=== PATIENT | female | born 1990 ===

== ENCOUNTER 2018-01-02 19:25 | Inpatient (IN) | payer OTHER ==
[2018-01-02] MEDS ORDERED: AMPICILLIN SODIUM 2 GM VIAL ONE (20:13)
[2018-01-02] MEDS ORDERED: AMPICILLIN - 2 GM in SODIUM CHLORIDE 100 ML IVPB ONE (20:15)
[2018-01-02] MEDS ORDERED: LIDOCAINE HCL 1% PRESERVATIVE FREE - 30ML VIAL ONE (20:39)
[2018-01-02] MEDS ORDERED: OXYTOCIN 20 UNITS in 0.9% NS 20 UNIT/1,000 ML INFUS.BAG IV ONE (20:39)
[2018-01-02 20:42] VITALS: BMI 46.7
[2018-01-02 20:59] LABS: BASO % 0.2 % (0-2.0); EOS % 1.2 % (0-4.5); HEMATOCRIT 42.9 % (32.4-45.2); HEMOGLOBIN 14.2 GM/dL (10.7-15.3); LYMPH % 17.6 % (8-40); MCHC 33.1 g/dl (32.0-36.0); MEAN CELL VOLUME 90.5 fl (80-96); MEAN PLT VOLUME 9.8 fl (7.5-11.1); MONO % 5.3 % (3.8-10.2); NEUT % 75.7 % (42.8-82.8); PLATELET COUNT 251 K/MM3 (134-434); RBC 4.73 M/mm3 (3.60-5.2); RDW 15.1 % (11.6-15.6); WHITE BLOOD COUNT 9.3 K/mm3 (4.0-10.0)
[2018-01-02] MEDS ORDERED: DEXTROSE 5%-LACTATED RINGERS 1,000 ML IV SCH (21:00)
--- NOTE | 2018-01-02 21:02 | HP ---
Past Medical History - Admission Chief Complaint: Labor pain History of Present Illness: 27 yo @ 39 weeks gestation, EDC 01/07/18, admitted for labor pain. She has a goiter and is scheduled for surgery after delivery. History Source: Patient Limitations to Obtaining History: No Limitations - Past Medical History ...: 2 ...Para: 1 ...Term: 1 ...: 0 ...Spon : 0 ...Induced : 0 ...Multiple Gestation: 0 ...LMP: 04/06/17 ... Weeks Gestation by Dates: 38.5 ...EDC by Dates: 01/11/18 ...EDC by Sono: 01/09/18 - Past Surgical History Past Surgical History: Yes: None Hx Myomectomy: No Hx Transabdominal Cerclage: No - Smoking History Smoking history: Former smoker Have you smoked in the past 12 months: Yes - Alcohol/Substance Use Hx Alcohol Use: No History of Substance Use: reports: None - Social History Usual Living Arrangement: Yes: With Significant Other History of Recent Travel: No Home Medications - Allergies Allergies/Adverse Reactions: Allergies Allergy/AdvReac Type Severity Reaction Status Date / Time iodine AdvReac Intermediate Itching Verified 01/02/18 20:10 shellfish derived AdvReac Intermediate Hives Verified 01/02/18 20:10 - Home Medications Home Medications: Ambulatory Orders Tablet 1 tablet PO DAILY 01/02/18 Ranitidine [Zantac -] 150 mg PO DAILY 01/02/18 Family Disease History - Family Disease History Family History: Unremarkable Review of Systems - Review of Systems Constitutional: reports: No Symptoms Eyes: reports: No Symptoms HENT: reports: No Symptoms Neck: reports: No Symptoms Cardiovascular: reports: No Symptoms Respiratory: reports: No Symptoms Gastrointestinal: reports: No Symptoms Genitourinary: reports: Pain Neurological: reports: No Symptoms Psychiatric: reports: No Symptoms Pain Intensity: 8 Physical Exam - Maternity Vital Signs: Vital Signs Temperature 98.8 F 01/02/18 19:45 Pulse Rate 79 01/02/18 19:45 Respiratory Rate 18 01/02/18 19:45 Blood Pressure 122/66 01/02/18 19:45 O2 Sat by Pulse Oximetry (%) Constitutional: Yes: Well Nourished Eyes: Yes: Conjunctiva Clear HENT: Yes: Atraumatic Neck: Yes: Supple Cardiovascular: Yes: Regular Rate and Rhythm Lungs: Clear to auscultation - Abdominal Exam/OB Number of Fetuses: Single Presentation: Vertex Contractions: Yes Regularity: Regular Intensity: Moderate - Vaginal Exam/OB Vaginal Bleediing: No Dilatation (cm): 8 Amniotic Membrane Status: Intact Station: -2 - Physical Exam Musculoskeletal: Yes: WNL Extremities: Yes: WNL Integumentary: Yes: WNL ...Motor Strength: WNL Psychiatric: Yes: Alert, Oriented Problem List - Problems (1) Pain during labor Code(s): O99.89 - OTH DISEASES AND CONDITIONS COMPL PREG/CHLDBRTH; R52 - PAIN, UNSPECIFIED Assessment/Plan Active labor Admit to L&D Analgesia as needed Anticipate
[2018-01-02 21:13] LABS: INR 0.95 (0.82-1.09); PROTHROMBIN TIME (PATIENT) 10.7 SEC (9.7-13.0)
--- NOTE | 2018-01-02 21:16 | PN ---
Progress Note (short form) - Note Progress Note: Patient seen and re-evaluated. C/O moderate discomfort AROM + Mec Problem List - Problems (1) Pain during labor Code(s): O99.89 - OTH DISEASES AND CONDITIONS COMPL PREG/CHLDBRTH; R52 - PAIN, UNSPECIFIED
--- NOTE | 2018-01-02 21:18 | PN ---
Delivery - Delivery Vaginal Delivery: Spontaneous Episiotomy/Laceration: None EBL (cc): 300 Delivery, Single - Feeding Plan Initial Plan: Exclusive throughout hospitalization Remarks - Remarks Remarks: Normal spontaneous vaginal delivery of a live boy over intact perineum. Nose / Oropharynx suctioned @ perineum. Cord clamped and cut. Placenta expelled spontaneously intact.
[2018-01-02] MEDS ORDERED: METHYLERGONOVINE MALEATE 0.2 MG/1 ML AMP IM PRN (21:19)
[2018-01-02] MEDS ORDERED: BISACODYL 10 MG SUPP.RECT RC PRN (21:19)
[2018-01-02] MEDS ORDERED: WITCH HAZEL 50% (TUCKS) 40 PAD/JAR PAD TP PRN (21:19)
[2018-01-02] MEDS ORDERED: BENZOCAINE 28 GM HEMORRHOIDAL OINTMENT TP PRN (21:19)
[2018-01-02] MEDS ORDERED: BENZOCAINE 20% 57 GM BOTTLE TP PRN (21:19)
[2018-01-02 21:23] LABS: URINE APPEARANCE CLOUDY; URINE BILIRUBIN NEGATIVE (<2.0 mg/dL); URINE COLOR DKYELLOW; URINE GLUCOSE (UA) NEGATIVE (NEGATIVE); URINE KETONE TRACE (NEGATIVE); URINE NITRITE NEGATIVE (NEGATIVE)
[2018-01-02 21:26] LABS: URINE LEUK ESTERASE 2+ (NEGATIVE); URINE PROTEIN 1+ (NEGATIVE)
[2018-01-02 21:27] LABS: EPI CELLS MODERATE /HPF (FEW); URINE HYALINE CAST 2 /lpf; URINE MUCUS FEW
[2018-01-02] MEDS ORDERED: OXYTOCIN 20 UNITS in 0.9% NS 20 UNIT/1,000 ML INFUS.BAG IV SCH (21:30)
[2018-01-02 21:32] LABS: ANION GAP 9 (8-16); BLOOD UREA NITROGEN 5 mg/dL (7-18); CALCIUM 9.1 mg/dL (8.5-10.1); CHLORIDE 108 mmol/L (98-107); CO2 24 mmol/L (21-32); CREATININE 0.6 mg/dL (0.55-1.02); GLUCOSE,RANDOM 87 mg/dL (74-106); SODIUM 141 mmol/L (136-145)
[2018-01-02 21:38] LABS: URINE AMPHETAMINES NEGATIVE ng/ml (CUTOFF=500); URINE BARBITURATES NEGATIVE ng/ml (CUTOFF=200); URINE BENZODIAZEPINES NEGATIVE ng/ml (CUTOFF=200)
[2018-01-02 21:39] LABS: COCAINE, UR NEGATIVE ng/ml (CUTOFF=300); METHADONE, UR NEGATIVE ng/ml (CUTOFF=300); OPIATES, URI NEGATIVE ng/ml (CUTOFF=300); PHENCYCLIDINE,URINE NEGATIVE ng/ml (CUTOFF=25)
[2018-01-02] MEDS ORDERED: ACETAMINOPHEN 325 MG TABLET (FP) ONE (21:39)
[2018-01-02] MEDS ORDERED: IBUPROFEN 600 MG TABLET (FP) PO ONE (21:39)
[2018-01-02] MEDS: IBUPROFEN 600 MG TABLET (FP) PO PRN (21:40)
[2018-01-02] MEDS: ACETAMINOPHEN 325 MG TABLET (FP) PO PRN (21:40)
[2018-01-03] MEDS ORDERED: AMPICILLIN - 1 GM in SODIUM CHLORIDE 100 ML IVPB SCH
[2018-01-03] MEDS: ACETAMINOPHEN 325 MG TABLET (FP) PO PRN (06:10)
[2018-01-03] MEDS: IBUPROFEN 600 MG TABLET (FP) PO PRN (06:11)
[2018-01-03 07:19] LABS: BASO % 0.2 % (0-2.0); EOS % 0.3 % (0-4.5); HEMOGLOBIN 11.3 GM/dL (10.7-15.3); LYMPH % 16.7 % (8-40); MCH 30.6 pg (25.7-33.7); MCHC 34.2 g/dl (32.0-36.0); MEAN CELL VOLUME 89.7 fl (80-96); MEAN PLT VOLUME 9.3 fl (7.5-11.1); MONO % 5.9 % (3.8-10.2); NEUT % 76.9 % (42.8-82.8); PLATELET COUNT 210 K/MM3 (134-434); RBC 3.68 M/mm3 (3.60-5.2); RDW 15.2 % (11.6-15.6); WHITE BLOOD COUNT 12.8 K/mm3 (4.0-10.0)
[2018-01-03] MEDS: FERROUS SO4 325 MG TABLET (FP) PO SCH ×2 (08:31→17:24)
[2018-01-03] MEDS: PRENATAL VITAMINS W/ FOLIC ACID TABLET (FP) PO SCH (09:48)
[2018-01-03] MEDS ORDERED: DIPHTH,PERTUSS(ACELL),TET 0.5 ML DISP.SYRIN IM ONE (10:00)
[2018-01-03] MEDS ORDERED: SENNOSIDES/DOCUSATE COMBO (SENNA PLUS) TABLET (UD) PO PRN (22:00)
--- NOTE | 2018-01-03 22:52 | PN ---
Post Progress Note - Subjective Subjective: 27 yo Para 2, status post normal vaginal delivery, seen and evaluated. Doing well. Post Day: 1 Type of Delivery: Vital Signs: Vital Signs Temperature 99.7 F H 01/03/18 22:00 Pulse Rate 80 01/03/18 22:00 Respiratory Rate 20 01/03/18 22:00 Blood Pressure 131/65 01/03/18 22:00 O2 Sat by Pulse Oximetry (%) Breast Exam: Yes: Soft Uterus: Yes: Fundus Firm Abdomen/GI: Yes: Abdomen soft, Tolerating PO Lochia: Yes: Rubra Lochia, amount: Moderate Extremities: Yes: Calves non-tender Activity: Ambulating - Labs Labs: CBC WBC 12.8 K/mm3 (4.0-10.0) H 01/03/18 06:30 RBC 3.68 M/mm3 (3.60-5.2) 01/03/18 06:30 Hgb 11.3 GM/dL (10.7-15.3) 01/03/18 06:30 Hct 33.0 % (32.4-45.2) D 01/03/18 06:30 MCV 89.7 fl (80-96) 01/03/18 06:30 MCH 30.6 pg (25.7-33.7) 01/03/18 06:30 MCHC 34.2 g/dl (32.0-36.0) 01/03/18 06:30 RDW 15.2 % (11.6-15.6) 01/03/18 06:30 Plt Count 210 K/MM3 (134-434) 01/03/18 06:30 MPV 9.3 fl (7.5-11.1) 01/03/18 06:30 Absolute Neuts (auto) 9.8 # 01/03/18 06:30 Neutrophils % 76.9 % (42.8-82.8) 01/03/18 06:30 Lymphocytes % 16.7 % (8-40) 01/03/18 06:30 Monocytes % 5.9 % (3.8-10.2) 01/03/18 06:30 Eosinophils % 0.3 % (0-4.5) 01/03/18 06:30 Basophils % 0.2 % (0-2.0) 01/03/18 06:30 Nucleated RBC % 0 % (0-0) 01/03/18 06:30 Problem List - Problems (1) Pain during labor Code(s): O99.89 - OTH DISEASES AND CONDITIONS COMPL PREG/CHLDBRTH; R52 - PAIN, UNSPECIFIED (2) Status post normal vaginal delivery Code(s): [id number] - Assessment/Plan Status post vaginal delivery Stable Continue routine care
[2018-01-04] MEDS: FERROUS SO4 325 MG TABLET (FP) PO SCH (08:30)
--- NOTE | 2018-01-04 09:47 | DS ---
Physical Exam-OFFSET LABEL REWINDER Vital Signs: Vital Signs Temperature 99.7 F H 01/03/18 22:00 Pulse Rate 80 01/03/18 22:00 Respiratory Rate 20 01/03/18 22:00 Blood Pressure 131/65 01/03/18 22:00 O2 Sat by Pulse Oximetry (%) Constitutional: Yes: Well Nourished Eyes: Yes: Conjunctiva Clear HENT: Yes: Atraumatic Neck: Yes: Supple Cardiovascular: Yes: Regular Rate and Rhythm Respiratory: Yes: Regular Gastrointestinal: Yes: Normal Bowel Sounds External Genitalia: Yes: Normal Vaginal Exam: Yes: Normal Cervix: Yes: Normal Uterus: Yes: Firm ....Post : Yes: Uterus firm, Moderate lochia serosa Breast(s): Yes: WNL Neurological: Yes: Alert, Oriented ...Motor Strength: WNL Psychiatric: Yes: Alert, Oriented Labs: CBC, BMP 01/03/18 06:30 01/02/18 20:30 Delivery - Delivery Vaginal Delivery: Spontaneous Type of Anesthesia: None Episiotomy/Laceration: None EBL (cc): 300 Delivery, Single - Stages of Labor Date 1st Stage Initiatied: 01/02/18 Time 1st Stage Initiated: 10:00 Date 2nd Stage Initiated: 01/02/18 Time 2nd Stage Initiated: 21:00 Date of Delivery: 01/02/18 Time of Delivery: 21:09 Time Placenta Delivered: 21:12 - 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 Gender: Male Weight: 8 lb 4 oz Position: Right, OA Total Hours ROM (Hrs/Mins): 22MINS - 1 Minute Total Score: 9 5 Minutes Total Score: 9 - Feeding Plan Initial Plan: Exclusive throughout hospitalization Discharge Summary Reason For Visit: LABOR Current Active Problems Pain during labor (Acute) Status post normal vaginal delivery (Acute) Procedures: Principal: Vaginal after Hospital Course: Routine care Condition: Good - Instructions Diet, Activity, Other Instructions: Regular diet No douching, no sexual intercourse x 6 weeks F/U in clinic in 6 weeks Disposition: HOME - Home Medications Comprehensive Discharge Medication List: Ambulatory Orders Tablet 1 tablet PO DAILY 01/02/18 Ranitidine [Zantac -] 150 mg PO DAILY 01/02/18
[2018-01-04 09:49] VITALS: BP 127/73; PULSE 93; TEMP 98.2
[2018-01-04] MEDS: PRENATAL VITAMINS W/ FOLIC ACID TABLET (FP) PO SCH (10:11)
== END 2018-01-04 12:15 | disposition home or self-care (01) | DRG 775 ==
LOC: JDEL 19:25 → JLDR 19:45 → J3W 22:45
PROVIDERS: ADMIT Obstetrics & Gynecology; ATTEND Obstetrics & Gynecology
PROC: 10E0XZZ Delivery of Products of Conception, External Approach (ICD-10-PCS; principal; 2018-01-02)
DX: O99.284 Endocrine, nutritional and metabolic diseases complicating childbirth (principal); E04.9 Nontoxic goiter, unspecified; Z3A.39 39 weeks gestation of pregnancy; Z37.0 Single live birth
CPT/HCPCS: 36415; 59409; 80048; 80307; 81003; 81015; 82962; 85025; 85610; 85730; 86593; 86850; 86900; 86901; 90715